=== PATIENT | male | born 2000 | race Caucasian/White ===

== ENCOUNTER 2018-09-01 15:30 | Emergency (ER) | payer BC ==
[2018-09-01] MEDS ORDERED: Adacel (T-DAP) 0.5 ML SYRINGE ONE (16:11)
== END 2018-09-01 17:04 | disposition home or self-care (01) ==
LOC: ERS 15:30
DX: S00.91XA Abrasion of unspecified part of head, initial encounter (principal); S40.211A Abrasion of right shoulder, initial encounter; T78.40XA Allergy, unspecified, initial encounter; Z87.891 Personal history of nicotine dependence; W22.8XXA Striking against or struck by other objects, initial encounter
CPT/HCPCS: 90471; 90715